=== PATIENT | female | born 1960 | race Hispanic/Latino ===

== ENCOUNTER 2018-07-18 18:02 | Emergency (ER) | payer OTHER ==
[~2018-07-18 18:02] MED LIST: AMLODIPINE BESYL5 MG PO; RANITIDINE HCL300 MG PO; SUCRALFATE1 GM PO; TYLENOL EXTRA500 MG PO
[2018-07-18] MEDS ORDERED: IPRATROPIUM BROMIDE 0.02% 2.5 ML NEB NEB STA (18:18)
[2018-07-18] MEDS ORDERED: ALBUTEROL SULF 0.083% NEB SOLN 3 ML NEB NEB STA (18:18)
--- NOTE | 2018-07-18 18:29 | NUR ---
Rt notified of ordered breathing treatment
--- NOTE | 2018-07-18 19:31 | Diagnostic Imaging Report ---
EXAMINATION: CHEST 2 VIEWS INDICATION: Shortness of breath ^ORDER PLACED BY ^[id number] ^[id number] ^Y COMPARISON: None FINDINGS: TUBES and LINES: None. LUNGS: Perihilar peribronchial hazy opacity could be due to bronchitis PLEURA: No pleural effusion or pneumothorax. HEART AND MEDIASTINUM: The cardiomediastinal silhouette is unremarkable. BONES AND SOFT TISSUES: No acute osseous lesion. Soft tissues are unremarkable. UPPER ABDOMEN: No free air under the diaphragm. IMPRESSION: Perihilar peribronchial hazy opacity could be due to bronchitis Signed by: Dr. Geronimo Sheth M.D. on 07/18/2018 7:28 PM
--- NOTE | 2018-07-18 20:00 | NUR ---
DISPO COMPLETE, AWAKE ALERT SKIN W/D RESP NONLAB. NAD NOTED. STATES FEELS BETTER.
== END 2018-07-18 20:01 | disposition home or self-care (01) ==
LOC: ER 18:02
DX: R05 Cough (principal); J01.10 Acute frontal sinusitis, unspecified; I10 Essential (primary) hypertension; K21.9 Gastro-esophageal reflux disease without esophagitis
CPT/HCPCS: 71046; 99283